=== PATIENT | female | born 1930 | race Hispanic/Latino ===

== ENCOUNTER 2018-01-09 15:02 | Outpatient (CLI) | payer MEDICARE ==
--- NOTE | 2018-01-09 17:03 | XRay Report ---
FINAL REPORT PROCEDURE: AP pelvis and frog-leg view of the right hip were obtained. TECHNIQUE: Frog-leg view of the right hip were obtained as well as AP view of the pelvis. HISTORY: HIP PAIN,ACUTE, RIGHT COMPARISON: No prior studies are available for comparison. 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 The prosthetic components are tightly applied to bone. There is no dislocation of the device. No loosening is seen. Bones are diffusely demineralized suggesting osteoporosis. Mild to moderate degenerative changes seen in the left SI joint, mild changes in the right SI joint. Moderate degenerative changes seen in the lower lumbar spine. Vascular calcifications are seen in the proximal right thigh. IMPRESSION: No acute abnormalities are seen. 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 Degenerative changes as described. Atherosclerosis. Osteoporosis.
== END 2018-01-09 15:03 | disposition home or self-care (01) ==
LOC: SPVIMAG 15:02
PROVIDERS: ATTEND Internal Medicine
DX: M16.11 Unilateral primary osteoarthritis, right hip (principal); M81.0 Age-related osteoporosis without current pathological fracture; M47.896 Other spondylosis, lumbar region; I70.90 Unspecified atherosclerosis; Z96.643 Presence of artificial hip joint, bilateral